=== PATIENT | male | born 1965 | race Caucasian/White ===

== ENCOUNTER 2017-09-19 06:07 | Day surgery (SDC) | payer BC ==
[2017-09-19] MEDS ORDERED: EPINEPHrine 1 MG/ML SDV ONE (06:31)
[2017-09-19] MEDS ORDERED: Ropivacaine 0.5% 5 MG/ML 30 ML SDV ONE (06:31)
[2017-09-19] MEDS ORDERED: Lidocaine 1% 4 ML ONE ×2 (06:48→07:06)
--- NOTE | 2017-09-19 06:55 | PCM.PREANE ---
Preanesthetic Assessment - Procedure Proposed Procedure: Left shoulder video arthroscopy with rotator cuff repair and subacromial decompression - Anesthesia/Transfusion/Family Hx Anesthesia History: No Prior Anesthesia Family History of Anesthesia Reaction: No Transfusion History: No Prior Transfusion(s) Intubation History: Unknown - Review of Systems General: No Symptoms Pulmonary: No Symptoms Cardiovascular: No Symptoms Gastrointestinal: No Symptoms Neurological: Paresthesia (diagnosed a few months ago fingers, cheeks and toes told r/t stress ) Other: Reports: None - Physical Assessment NPO Status Date: 09/18/17 NPO Status Time: 22:00 O2 Sat by Pulse Oximetry: 96 Respiratory Rate: 16 Vital Signs: Last Vital Signs Temp 36.3 C 09/19/17 06:15 Pulse 83 09/19/17 06:15 Resp 16 09/19/17 06:15 BP 138/92 H 09/19/17 06:15 Pulse Ox 96 09/19/17 06:15 Height: 1.75 m Weight: 97.522 kg ASA Class: 2 Mental Status: Alert & Oriented x3 Airway Class: Mallampati = 3 Dentition: Reports: Normal Dentition Thyro-Mental Finger Breadths: 3 Mouth Opening Finger Breadths: 4 ROM/Head Extension: Other Lungs: Clear to Auscultation, Normal Respiratory Effort Cardiovascular: Regular Rate, Regular Rhythm - Lab Values: Laboratory Last Values WBC 7.64 K/mm3 (4.23-9.07) 09/19/17 05:30 RBC 4.99 M/mm3 (4.63-6.08) 09/19/17 05:30 Hgb 14.9 gm/L (13.7-17.5) 09/19/17 05:30 Hct 43.3 % (40.1-51.0) 09/19/17 05:30 MCV 86.8 fl (79.0-92.2) 09/19/17 05:30 MCH 29.9 pg (25.7-32.2) 09/19/17 05:30 MCHC 34.4 g/dl (32.2-35.5) 09/19/17 05:30 RDW Std Deviation 39.6 fL (35.1-43.9) 09/19/17 05:30 Plt Count 269 K/mm3 (163-337) 09/19/17 05:30 MPV 9.9 fl (9.4-12.3) 09/19/17 05:30 Neut % (Auto) 58.7 % (34.0-67.9) 09/19/17 05:30 Lymph % (Auto) 28.9 % (21.8-53.1) 09/19/17 05:30 [place] % (Auto) 6.8 % (5.3-12.2) 09/19/17 05:30 Eos % (Auto) 3.9 (0.8-7.0) 09/19/17 05:30 Baso % (Auto) 1.6 % (0.1-1.2) H 09/19/17 05:30 Neut # (Auto) 4.48 K/mm3 (1.78-5.38) 09/19/17 05:30 Lymph # (Auto) 2.21 K/mm3 (1.32-3.57) 09/19/17 05:30 [place] # (Auto) 0.52 K/mm3 (0.30-0.82) 09/19/17 05:30 Eos # (Auto) 0.30 K/mm3 (0.04-0.54) 09/19/17 05:30 Baso # (Auto) 0.12 K/mm3 (0.01-0.08) H 09/19/17 05:30 MRSA (PCR) Negative 09/17/17 12:14 - Allergies Allergies/Adverse Reactions: Allergies Allergy/AdvReac Type Severity Reaction Status Date / Time Sulfa (Sulfonamide AdvReac Mild Nausea Verified 09/18/17 12:35 Antibiotics) - Blood Blood Available: No - Anesthesia Plan Pre-Op Medication Ordered: None - Acknowledgements Anesthesia Type Planned: General Anesthesia Pt an Appropriate Candidate for the Planned Anesthesia: Yes Alternatives and Risks of Anesthesia Discussed w Pt/Guardian: Yes Pt/Guardian Understands and Agrees with Anesthesia Plan: Yes PreAnesthesia Questionnaire HEENT History: Reports: None, Allergic Rhinitis, Impaired Vision, Other (See Below) Other HEENT History: wears glasses Cardiovascular History: Reports: High Cholesterol, Hypertension Respiratory History: Reports: None Gastrointestinal History: Reports: None Genitourinary History: Reports: None, Other (See Below) Other Genitourinary History: epididymitis MACHINE GUNNER History: Reports: None Musculoskeletal History: Reports: Other (See Below) Other Musculoskeletal History: left rotator cuff tear, left epicondylitis, left shoulder injury, right elbow pain Neurological History: Reports: Other (See Below) Other Neuro History: facial paresthesia, foot and hand paresthesia Psychiatric History: Reports: None Endocrine/Metabolic History: Reports: None Hematologic History: Reports: None Immunologic History: Reports: None Oncologic (Cancer) History: Reports: None Dermatologic History: Reports: None - Infectious Disease History Infectious Disease History: Reports: None - Past Surgical History Head Surgeries/Procedures: Reports: None Cardiovascular Surgical History: Reports: None Respiratory Surgical History: Reports: None GI Surgical History: Reports: None Endocrine Surgical History: Reports: None Neurological Surgical History: Reports: None Musculoskeletal Surgical History: Reports: Arthroscopic Knee Oncologic Surgical History: Reports: None Dermatological Surgical History: Reports: None - SUBSTANCE USE Smoking Status *Q: Never Smoker Recreational Drug Use History: No - HOME MEDS Home Medications: Home Meds Losartan Potassium [Cozaar] 100 mg DAILY 05/23/17 [History] Rosuvastatin Calcium 10 mg DAILY 05/23/17 [History] amLODIPine Besylate [Amlodipine Besylate] 10 mg PO DAILY 09/18/17 [History] Acetaminophen/HYDROcodone [[place] 325-5 MG] 1 - 2 tab PO Q6H PRN #40 tablet 09/19 [Rx] Cyclobenzaprine [Flexeril] 10 mg PO Q8H PRN #40 tab 09/19/17 [Rx] - CURRENT (IN HOUSE) MEDS Current Meds: Current Medications Epinephrine HCl (Adrenalin) 3 mg .XX ASDIRECTED KIM Stop: 09/19/17 18:00 Lactated Ringer's (Ringers, Lactated) 1,000 mls @ 125 mls/hr IV ASDIRECTED IKM Stop: 09/19/17 23:00 Last Admin: 09/19/17 06:35 Dose: 125 mls/hr Lidocaine/Sodium Bicarbonate (Buffered Lidocaine 1% In Ns 8.4%) 0.25 ml IDERM ONETIME PRN PRN Reason: Prior to IV Start Stop: 09/19/17 18:00 Last Admin: 09/19/17 06:35 Dose: 0.25 ml Sodium Chloride (Saline Flush) 10 ml FLUSH ASDIRECTED PRN PRN Reason: Keep Vein Open Stop: 09/19/17 18:00 Discontinued Medications Epinephrine HCl (Adrenalin) 3 mg .XX ASDIRECTED KIM Stop: 09/19/17 18:00 Epinephrine HCl (Adrenalin) Confirm Administered Dose 1 mg .ROUTE .STK-MED ONE Stop: 09/19/17 06:32 Ropivacaine (Naropin 0.5%) Confirm Administered Dose 30 ml .ROUTE .STK-MED ONE Stop: 09/19/17 06:32
[2017-09-19] MEDS ORDERED: EPINEPHrine 1 MG/ML 30 ML MDV SCH ×2 (07:00→10:00)
[2017-09-19] MEDS ORDERED: Sodium Chloride 0.9% 10 ML Syringe FLUSH PRN (07:00)
[2017-09-19] MEDS ORDERED: Lidocaine 1%/Sod Bicarbonate in NS 8.4% 1 ML Syringe IDERM PRN (07:00)
[2017-09-19] MEDS ORDERED: Lactated Ringers 1,000 ML IV SCH (07:00)
[2017-09-19] MEDS ORDERED: fentaNYL 100 MCG/2 ML SDV ONE ×2 (07:01→07:09)
[2017-09-19] MEDS ORDERED: Midazolam 1 MG/ML 2 ML SDV ONE (07:01)
[2017-09-19] MEDS ORDERED: Propofol 200 MG/20 ML SDV ONE (07:01)
[2017-09-19] MEDS ORDERED: Bupivacaine 0.25% 10 ML SDV ONE (07:06)
[2017-09-19] MEDS ORDERED: Rocuronium 50 MG/5 ML Vial ONE (07:07)
[2017-09-19] MEDS ORDERED: ceFAZolin 1 GM Vial ONE (07:07)
[2017-09-19] MEDS ORDERED: ePHEDrine/Normal Saline 25 MG/5 ML Syringe ONE (07:46)
[2017-09-19] MEDS ORDERED: Lactated Ringers 1,000 ML ONE (07:54)
--- NOTE | 2017-09-19 07:55 | PCM.SN ---
- Free Text/Narrative Note: Interscalene nerve block note Date: 09/19/2017 Start: 704 Time Out: 704 Stop: 717 Surgical Procedure: Left shoulder video arthroscopy with RCR, ELIZABETH Diagnosis: Left rotator cuff tear Current Procedure: Left interscalene block under US guidance for postoperative pain control Patient chart reviewed, risk/benefits discussed with patient, consent obtained. Patient positioned supine, monitors/alarms on, oxygen placed via nasal cannula at 2 LPM. IV sedation administered: Versed 2mg IV Fentanyl 100 mcg IV Left shoulder prepped with chloraprep x1. Sterile drapes placed with aseptic technique. Under US guidance, left subclavian artery visualized along with the brachial plexus. Plexus followed cephalad up to C6 cricoid level, and area localized with 2mls of 1% lidocaine. 22gauge 2 inch stimiplex needle inserted under US and guided to brachial plexus C5-C6 trunks with 0.44mV with stimulation of biceps and wrist noted. Stimulation abolished at 0.2mVs. 1ml of Normal Saline injected with loss of stimulation up to 0.7mA. Incremental injection of 5mls with negative aspiration prior to each injection of 0.5% ropivacaine with 1:200,000 epinephrine. Total volume=30mls. Refer to nurses notes for vital signs. Boo Lombardi CRNA
[2017-09-19] MEDS ORDERED: Ondansetron 4 MG/2 ML SDV ONE (08:04)
[2017-09-19] MEDS ORDERED: Dexamethasone 4 MG/ML SDV ONE (08:04)
[2017-09-19] MEDS ORDERED: Ketorolac 30 MG/ML SDV ONE (08:04)
[2017-09-19] MEDS ORDERED: Phenylephrine/Normal Saline 100 MCG/ML 10 ML Syringe ONE (08:14)
--- NOTE | 2017-09-19 09:58 | PCM.POSTAN ---
POST ANESTHESIA ASSESSMENT - MENTAL STATUS Mental Status: Alert - VITAL SIGNS Pulse Rate: 99 SaO2: 94 Resp Rate: 16 Blood Pressure: 122/81 Temperature: 36.5 C - RESPIRATORY Respiratory Status: Respiratory Rate WNL, Airway Patent, O2 Saturation Stable - CARDIOVASCULAR CV Status: Pulse Rate WNL, Blood Pressure Stable - GASTROINTESTINAL GI Status: No Symptoms - PAIN Pain Score: 0 - POST OP HYDRATION Hydration Status: Adequate & Stable
[2017-09-19] MEDS ORDERED: diphenhydrAMINE 50 MG/ML SDV IVPUSH PRN (09:59)
[2017-09-19] MEDS ORDERED: fentaNYL 100 MCG/2 ML SDV IVPUSH PRN (09:59)
[2017-09-19] MEDS ORDERED: Ondansetron 4 MG/2 ML SDV IVPUSH PRN (09:59)
--- NOTE | 2017-09-19 10:32 | PCM.OPNOTE ---
- General Post-Op/Procedure Note Date of Surgery/Procedure: 09/19/17 Operative Procedure(s): left shoulder video arthroscopy with extensive debridement and massive rotator cuff repair Pre Op Diagnosis: left shoulder rotator cuff tear Post-Op Diagnosis: Same Anesthesia Technique: General ET Tube, Regional Block Primary Surgeon: Anil Rojas Anesthesia Provider: Elvi Mann [employer] Customer Service Representative: Olga Pham in mLs: 5 Complications: None Condition: Good
--- NOTE | 2017-09-19 12:56 | PCM48HPAN ---
Post Anesthesia Note - EVALUATION WITHIN 48HRS OF ANESTHETIC Vital Signs in Normal Range: Yes Patient Participated in Evaluation: Yes Respiratory Function Stable: Yes Airway Patent: Yes Cardiovascular Function Stable: Yes Hydration Status Stable: Yes Pain Control Satisfactory: Yes Nausea and Vomiting Control Satisfactory: Yes Mental Status Recovered: Yes - COMMENTS/OBSERVATIONS Free Text/Narrative:: Denies any anesthetic complications
--- NOTE | 2017-09-19 14:19 | PCM48HPAN ---
Post Anesthesia Note - EVALUATION WITHIN 48HRS OF ANESTHETIC Vital Signs in Normal Range: Yes Patient Participated in Evaluation: Yes Respiratory Function Stable: Yes Airway Patent: Yes Cardiovascular Function Stable: Yes Hydration Status Stable: Yes Pain Control Satisfactory: Yes Nausea and Vomiting Control Satisfactory: Yes Mental Status Recovered: Yes Pulse Rate: 99 Resp Rate: 16 Temperature: 36.5 C Blood Pressure: 122/81
--- NOTE | 2017-09-19 18:08 | OR ---
DATE OF OPERATION: 09/19/2017 SURGEON: Anil Rojas MD OPERATION PERFORMED: Left shoulder video arthroscopy, extensive debridement, massive rotator cuff repair. PREOPERATIVE DIAGNOSIS: Left shoulder rotator cuff tear. POSTOPERATIVE DIAGNOSIS: Left shoulder rotator cuff tear. ANESTHESIA: General endotracheal intubation with regional interscalene block. ANESTHESIA PROVIDER: Dwayne Portillo. CURING PRESS OPERATOR: Olga Pham PA-C. ESTIMATED BLOOD LOSS: 5 mL. COMPLICATIONS: None. CONDITION: Stable. DESCRIPTION OF PROCEDURE: The patient was identified in the preop holding area. Proper site was marked and identified by the surgeon. The patient was taken back to the operating theater, where after adequate anesthesia, the patient was placed in a lazy right lateral decubitus position. A wedge was placed posteriorly. All bony prominences were well padded. The patient was secured to the table. At this time, the left upper extremity was sterilely prepped and draped in the usual sterile fashion. OR time-out was performed. The patient received 2 g IV Ancef, 15 pounds of traction was applied to the left upper extremity and standard posterior incision was made. Scope trocar was introduced in glenohumeral joint. The patient had very minimal changes of chondromalacia noted. He did have significant anterior labral fraying as well as fraying superiorly near the biceps attachment but the biceps itself looked fine. At this time, a debridement was done of the anterior capsule as well as anterior labrum back to a stable rim. The patient was noted to have massive tear both the supra and infraspinatus all the way back to the margin of the teres minor. At this time, scope was removed and placed in the subacromial space and anterior portal was then created with an outside in technique and a lateral portal was created. At this time extensive debridement was done of the synovium as well as rotator cuff was elevated off the superior border of the glenoid. There was found to have good excursion. The footprint was then resected using a full radius resector as well as burred back to a good bony bleeding bed. At this time, two 4.75 mm Arthrex SwiveLock anchors loaded with FiberTape with a weld as well as 2 FiberWire were placed in both anterior and posterior. At this time, the FiberTape was passed anteriorly as well as the 2 limbs of the FiberWire and then posteriorly the FiberTape was passed as well as 2 limbs of the FiberWire. The 2 anterior limbs of FiberWire were then tied arthroscopically and both these sutures were then cut. Next, the weld was cut on the FiberTape and 1 limb from anterior and 1 limb from posterior, then was brought out laterally. Another punch was used for 4.75 mm Arthrex SwiveLock anchor laterally and anteriorly. The 2 limbs of the FiberTape were then brought through it and anchor was then placed after tension was applied to the suture. Next, the remaining 2 limbs of FiberTape were brought out laterally and again another 4.75 mm Arthrex SwiveLock anchor was placed at this time lateral and posterior for a double row repair both anterior and posterior. At this time, it was found to have adequate watertight sikh of the footprint with no significant fraying or dog ears noted. At this time, we did debride the subacromial space. The CA ligament was intact. There were no signs of significant impingement. Excess saline was debrided from the shoulder. A 3-0 nylon simple suture was used for closure of the skin. The patient was placed in a sterile soft dressing and a pillow sling and sent to PACU in stable condition. CATRACHITA /[id number]
== END 2017-09-19 12:45 | disposition home or self-care (01) ==
LOC: JD.SDS 06:07
PROVIDERS: ATTEND Orthopaedic Surgery
DX: M75.102 Unspecified rotator cuff tear or rupture of left shoulder, not specified as traumatic (principal); E78.5 Hyperlipidemia, unspecified; I10 Essential (primary) hypertension; Z88.2 Allergy status to sulfonamides; Z79.899 Other long term (current) drug therapy
CPT/HCPCS: 29827; 36415; 64415; 80048; 85025; 87641; C1713; J0171; J0690; J1100; J1885; J2001; J2250; J2405; J2795; J3010; J7050; J7120; J2704

== ENCOUNTER → 2023-01-10 | Day surgery (SDC) | payer BC ==
[~2023-01-10] MED LIST: Lactated Ringers 1,000 ML IV SCH; Lactated Ringers 1,000 ML ONE; Lidocaine 2% 5 ML SDV ONE; Ondansetron 4 MG/2 ML SDV IVPUSH PRN; Propofol 200 MG/20 ML SDV ONE; Sodium Chloride 0.9% 10 ML Syringe FLUSH PRN; Sodium Chloride 0.9% 10 ML Syringe FLUSH SCH
== END | disposition home or self-care (01) ==
LOC: JD.SDS 07:32
PROVIDERS: ATTEND Surgery
DX: D12.0 Benign neoplasm of cecum (principal); D12.8 Benign neoplasm of rectum; F41.9 Anxiety disorder, unspecified; I10 Essential (primary) hypertension; E78.00 Pure hypercholesterolemia, unspecified; E78.2 Mixed hyperlipidemia; R73.03 Prediabetes; E55.9 Vitamin D deficiency, unspecified; Z88.2 Allergy status to sulfonamides; Z79.82 Long term (current) use of aspirin; Z79.899 Other long term (current) drug therapy
CPT/HCPCS: 45380; 45385; J2704; J7120; 00811; J3490

== ENCOUNTER 2024-02-13 06:43 | Day surgery (SDC) | payer BC ==
[2024-02-13] MEDS: Lactated Ringers 1,000 ML IV SCH (07:00)
[2024-02-13] MEDS ORDERED: Propofol 200 MG/20 ML SDV ONE ×2 (07:22→07:33)
== END 2024-02-13 08:39 | disposition home or self-care (01) ==
LOC: JD.SDS 06:43
PROVIDERS: ATTEND Surgery
DX: Z12.11 Encounter for screening for malignant neoplasm of colon (principal); D12.5 Benign neoplasm of sigmoid colon; I10 Essential (primary) hypertension; E78.00 Pure hypercholesterolemia, unspecified; Z79.82 Long term (current) use of aspirin; Z79.899 Other long term (current) drug therapy; Z88.2 Allergy status to sulfonamides
CPT/HCPCS: 45385; J2704; J7120; 00811